=== PATIENT | male | born 1990 | race African-American/Black ===

== ENCOUNTER 2017-05-25 14:06 | Inpatient (IN) | payer OTHER ==
[2017-05-25 20:20] VITALS: BP 160/96; PULSE 96; TEMP 98.5; BMI 38.3
--- NOTE | 2017-05-25 20:39 | HP ---
Admission ROS [facility] - [facility] Chief Complaint: SEEKING REHAB SERVICES Allergies/Adverse Reactions: Allergies Allergy/AdvReac Type Severity Reaction Status Date / Time lactose Allergy Verified 05/25/17 20:36 strawberry AdvReac Verified 05/25/17 20:35 History of Present Illness: 26 Y.O. MAN WITH A HISTORY OF ALCOHOL, PCP, CANNABIS DEPENDENCE IS HERE SEEKING REHAB SERVICES. THIS HIS FIRST ADMISSION INTO INPATIENT REHAB. Exam Limitations: No Limitations - Ebola screening Have you traveled outside of the country in the last 21 days: No Have you been sick,other than usual withdrawal symptoms: No - Review of Systems Constitutional: Changes in sleep EENT: reports: No Symptoms Reported Respiratory: reports: No Symptoms reported Cardiac: reports: No Symptoms Reported GI: reports: No Symptoms Reported : reports: No Symptoms Reported Musculoskeletal: reports: Back Pain, Neck Pain Integumentary: reports: No Symptoms Reported Neuro: reports: Headache Endocrine: reports: No Symptoms Reported Hematology: reports: Anemia Psychiatric: reports: Orientated x3, Anxious, Depressed Other Systems: Reviewed and Negative Patient History - Patient Medical History Hx Anemia: Yes Hx Asthma: Yes (CHILDHOOD ASTHMA ) Hx Chronic Obstructive Pulmonary Disease (COPD): No Hx Cancer: No Hx Cardiac Disorders: No Hx Congestive Heart Failure: No Hx Hypertension: No Hx Hypercholesterolemia: No Hx Pacemaker: No HX Cerebrovascular Accident: No Hx Seizures: No Hx Dementia: No Hx Diabetes: No Hx Gastrointestinal Disorders: No Hx Liver Disease: No Hx Genitourinary Disorders: No Hx Sexually Transmitted Disorders: No Hx Renal Disease (ESRD): No Hx Thyroid Disease: No Hx Human Immunodeficiency Virus (HIV): No Hx Hepatitis C: No Hx Depression: Yes Hx Suicide Attempt: No Hx Bipolar Disorder: No Hx Schizophrenia: No - Patient Surgical History Past Surgical History: No - PPD History Previous Implant?: Yes Documented Results: Negative w/o proof PPD to be Administered?: Yes - Reproductive History Patient is a Female of Child Bearing Age (11 -55 yrs old): No - Smoking Cessation Smoking history: Current every day smoker Have you smoked in the past 12 months: Yes Initiated information on smoking cessation: Yes 'Breaking Loose' booklet given: 05/25/17 - Substance & Tx. History Hx Alcohol Use: Yes Hx Substance Use: Yes Substance Use Type: Alcohol, Marijuana Hx Substance Use Treatment: No (NEVER BEEN TO DETOX; THIS IS HIS FIRST ADMISSION INTO REHAB) - Substances Abused Alcohol Route: Oral Frequency: Daily Amount used: 1 PINT OF LIQUOR Age of first use: 21 Date of Last Use: 05/23/17 PCP Route: Smoking Frequency: 1-3 times last 30 days Amount used: VARIES Age of first use: 19 Date of Last Use: 05/23/17 Marijuana/Hashish Route: Smoking Frequency: Daily Amount used: $40 Age of first use: 14 Date of Last Use: 05/25/17 Family Disease History - Family Disease History Family Disease History: Diabetes: Mother, Other: Father (CRACK-COCAINE DEPENDENCE) Admission Physical Exam [facility] - Vital Signs Vital Signs: Vital Signs - 24 hr 05/25/17 20:12 Temperature 98.5 F Pulse Rate 96 H Respiratory 18 Rate Blood Pressure 160/96 - Physical General Appearance: Yes: Obese HEENTM: Yes: Hearing grossly Normal, Normocephalic, Normal Voice Respiratory: Yes: Chest Non-Tender, Lungs Clear, Normal Breath Sounds, No Respiratory Distress, No Accessory Muscle Use Neck: Yes: No masses,lesions,Nodules, Trachea in good position Breast: Yes: Breast Exam Deferred Cardiology: Yes: Regular Rhythm, Regular Rate Abdominal: Yes: Flat, Soft Genitourinary: Yes: Within Normal Limits Back: Yes: Within Normal Limits, Normal Inspection Musculoskeletal: Yes: Back pain Extremities: Yes: Normal Capillary Refill, Normal Inspection, Normal Range of Motion, Non-Tender 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 intact, Fully Oriented, Alert, Normal Mood/ Affect, Normal Response Integumentary: Yes: Normal Color, Dry, Warm Lymphatic: Yes: Within Normal Limits - Diagnostic (1) Alcohol dependence with uncomplicated withdrawal Current Visit: Yes Status: Chronic (2) PCP dependence Current Visit: Yes Status: Chronic (3) Nicotine dependence Current Visit: Yes Status: Chronic (4) Cannabis dependence Current Visit: Yes Status: Chronic Cleared for Admission [facility] - Detox or Rehab [facility] Level of Care: Observation Bed Claeared for Rehab Admission: Yes [facility] Breath Alcohol Content Breath Alcohol Content: 0 Urine Drug Screen - Results Drug Screen Negative: No Urine Drug Screen Results: THC-Marijuana, PCP-Phencyclidine
[2017-05-25] MEDS ORDERED: ACETAMINOPHEN 325 MG TABLET (FP) PO PRN (20:46)
[2017-05-25] MEDS ORDERED: NICOTINE POLACRILEX 2 MG GUM BC PRN (20:46)
[2017-05-25] MEDS ORDERED: P-EPHED 60MG/TRIPROLIDI 2.5MG TABLET PO PRN (20:46)
[2017-05-25] MEDS ORDERED: diphenhydrAMINE HCL 50 MG CAPSULE PO PRN (20:46)
[2017-05-25] MEDS ORDERED: MAGNESIUM CITRATE 300 ML BOTTLE PO PRN (20:46)
[2017-05-25] MEDS ORDERED: hydrOXYzine PAMOATE 50 MG CAPSULE (FP) PO PRN (20:46)
[2017-05-25] MEDS ORDERED: IBUPROFEN 400 MG TABLET (FP) PO PRN (20:46)
[2017-05-25] MEDS ORDERED: guaiFENesin/D-METHORPHAN HB 10 ML UNIT-DOSE CUPS PO PRN (20:46)
[2017-05-25] MEDS ORDERED: MENTHOL/PHENOL 1 EACH UD MM PRN (20:46)
[2017-05-25] MEDS ORDERED: MAGNESIUM HYDROX 2400MG/30ML ORAL SUSPENSION 30 ML CUP PO PRN (20:46)
[2017-05-25] MEDS ORDERED: MAG HYDROX/AL HYDROX/SIMETH 30 ML UNIT-DOSE CUP PO PRN (20:46)
[2017-05-25] MEDS ORDERED: LOPERAMIDE HCL 2 MG CAPSULE PO PRN (20:46)
[2017-05-25] MEDS ORDERED: THIAMINE HCL 100 MG TABLET (FP) PO SCH (22:00)
[2017-05-25] MEDS ORDERED: TUBERCULIN PPD 5 TU/0.1ML VIAL ID ONE (23:32)
--- NOTE | 2017-05-26 07:05 | HP ---
Psychiatrist Admission - Data Date of interview: 05/26/17 Admission source: Self-referred Identifying data: This is the first [facility] admission for this 26 years old male Medical History: Significant for Anemia, Asthma. Smokes cigarettes daily Vital Signs: Vital Signs - 24 hr 05/25/17 05/26/17 05/26/17 20:12 00:30 03:30 Temperature 98.5 F Pulse Rate 96 H Respiratory 18 20 20 Rate Blood Pressure 160/96 Allergies/Adverse Reactions: Allergies Allergy/AdvReac Type Severity Reaction Status Date / Time lactose Allergy Verified 05/25/17 20:36 strawberry AdvReac Verified 05/25/17 20:35 Date of last physical exam: 05/25/17 Concur with the findings of this exam: Yes - Substance Abuse/Tx History Hx Alcohol Use: Yes Hx Substance Use: Yes (Started pcp at age 19. Consomation amount varies,. Last smoked on 05/23/17) Substance Use Type: Alcohol (Started drinking alcoholat age 21, consumes one pint of liquor daily. Last drink on 05/23/17), Marijuana (Started smoking marijuana at age 14, consumes $40 worth daily. Last smoked on 05/25/17) - Admission Criteria Poor recovery environment: Yes Comorbidities: Yes Lacks judgement: Yes Psychiatric Findings - Problem List ([place] 1, 2,3) (1) Alcohol dependence Current Visit: Yes Status: Acute (2) Cannabis dependence Current Visit: Yes Status: Chronic (3) Nicotine dependence Current Visit: Yes Status: Chronic
[2017-05-26] MEDS ORDERED: PRENATAL VITAMINS W/ FOLIC ACID TABLET (FP) PO SCH (10:00)
== END 2017-05-26 07:00 | disposition left against medical advice (07) | DRG 770 ==
LOC: YASAS 14:06 → Y3W 20:57
PROVIDERS: ADMIT Psychiatry & Neurology Psychiatry; ATTEND Psychiatry & Neurology Psychiatry
PROC: HZ42ZZZ Group Counseling for Substance Abuse Treatment, Cognitive-Behavioral (ICD-10-PCS; principal; 2017-05-25)
DX: F10.20 Alcohol dependence, uncomplicated (principal); F12.20 Cannabis dependence, uncomplicated; F16.20 Hallucinogen dependence, uncomplicated; F17.210 Nicotine dependence, cigarettes, uncomplicated; Z86.2 Personal history of diseases of the blood and blood-forming organs and certain disorders involving the immune mechanism; Z87.09 Personal history of other diseases of the respiratory system

== ENCOUNTER 2020-08-19 12:58 | Emergency (ER) | payer OTHER ==
[2020-08-19 13:15] VITALS: BP 129/88; PULSE 83; BMI 37.5
[2020-08-19] MEDS ORDERED: CLINDAMYCIN 600MG PREMIX IVPB 600 MG/50 ML BAG IVPB ONE (13:47)
[2020-08-19] MEDS ORDERED: CLINDAMYCIN PHOSPHATE 600 MG/4 ML VIAL ONE (13:58)
[2020-08-19 14:24] LABS: BASO % 1.7 % (0-2.0); EOS % 1.8 % (0-4.5); HEMATOCRIT 45.4 % (35.4-49); MCH 27.9 pg (25.7-33.7); MCHC 33.1 g/dl (32.0-35.9); MEAN CELL VOLUME 84.5 fl (80-96); MEAN PLT VOLUME 9.6 fl (7.5-11.1); NEUT % 70.5 % (42.8-82.8); PLATELET COUNT 201 K/MM3 (134-434); RBC 5.38 M/mm3 (4.00-5.60); RDW 14.7 % (11.9-15.9); WHITE BLOOD COUNT 6.2 K/mm3 (4.0-10.0)
[2020-08-19 14:46] LABS: BLOOD UREA NITROGEN 7.3 mg/dL (7-18); CALCIUM 9.7 mg/dL (8.5-10.1)
[2020-08-19 14:50] LABS: CREATININE 0.9 mg/dL (0.55-1.3)
[2020-08-19 14:51] LABS: BILIRUBIN,TOTAL 0.3 mg/dL (0.2-1)
[2020-08-19 15:40] LABS: HIV INTERPRETATION NEGATIVE (NEGATIVE)
== END 2020-08-19 15:53 | disposition home or self-care (01) ==
LOC: JERFT 12:58
DX: L40.1 Generalized pustular psoriasis (principal); L03.116 Cellulitis of left lower limb
CPT/HCPCS: 36415; 80053; 83036; 85025; 87389; 99284-25